=== PATIENT | male | born 1995 | race Caucasian/White ===

== ENCOUNTER 2021-03-04 06:31 | Emergency (ER) | payer BC, SELFPAY ==
[2021-03-04] VITALS (7 sets, daily range): BP systolic 116–172; BP diastolic 70–93; PULSE 68–88; RESP 16–18; TEMP 36.5–36.6; O2SAT 97–99; BMI 32.1
--- NOTE | 2021-03-04 06:43 | CT_ITS ---
PROCEDURE: CT ABDOMEN PELVIS W CON CLINICAL INDICATION: abd pain, vomiting blood COMPARISON: No exams were available for comparison TECHNIQUE: IV Contrast: 75ML Isovue 370 Oral Contrast None Axial images obtained with sagittal and coronal reformats. All CT scans at the facility use one or more dose reduction, viz: automated exposure control, ma/kV adjustment per patient size (including targeted exams where dose is matched to indication, i.e. head), or iterative reconstruction technique. FINDINGS: LOWER THORAX: No acute finding ABDOMEN & PELVIS: Liver, spleen adrenal glands, pancreas, and kidneys have an unremarkable appearance. No evidence of appendicitis. No intestinal obstruction or free air. There may be a few tiny stones in the fundus of the gallbladder as seen on image 42 series 3 incidental note made of aberrant course of the descending colon descending medially to the pericolic gutter anterior to the left kidney. No bowel wall thickening. There is thickening of the wall the stomach however the stomach is nondistended. There are few scattered small mesenteric lymph nodes. No acute bony findings. IMPRESSION: There is thickening of the wall the stomach however the stomach is nondistended. The thickening could be related to the incomplete distension. Gastritis is not excluded. Possible cholelithiasis. Otherwise negative Dictated by: Karlos Jorgensen MD 03/04/2021 07:55 Karlos Jorgensen MD in [facility] 03/04/2021 07:55
[2021-03-04 07:07] LABS: MANUAL DIFFERENTIAL MANUAL DIFFERENTIAL (MANUAL DIFF)
[2021-03-04 07:10] LABS: Basophils % 0.3 % (0.1-2.0); Eosinophils # 0.3 K/mm3 (0.0-0.4); Eosinophils % 1.7 % (0.1-12.0); Hematocrit 45.4 % (42.0-52.0); Hemoglobin 15.4 g/dL (14.1-18.0); Lymphocytes # 2.6 K/mm3 (0.7-4.5); Lymphocytes % 15.7 % (10-50); Mean Corpuscular HGB Conc 33.8 g/dL (31.8-35.4); Mean Corpuscular Hemoglobin 28.5 pg (27.0-31.2); Mean Corpuscular Volume 84.1 fl (80-94); Mean Platelet Volume 7.7 fl (7.4-10.4); Monocytes # 0.8 K/mm3 (0.1-1.0); Monocytes % 4.6 % (1.7-9.3); Neutrophils # 12.9 K/mm3 (1.8-7.8); Neutrophils % 77.8 % (37.0-80.0); Platelet Count 266 K/mm3 (142-424); Red Cell Distribution Width 12.9 % (11.5-17.5); White Blood Count 16.6 K/mm3 (4.8-10.8)
[2021-03-04 07:15] LABS: Chloride 103 mmol/L (98-107); Potassium 4.6 mmoL/L (3.5-5.1); Sodium 139 mmol/L (136-145)
[2021-03-04 07:18] LABS: Alanine Aminotransferase 33 U/L (12-78); Albumin Level 4.6 g/dl (3.5-5.0); Albumin/Globulin Ratio 1.7 (1.1-1.8); Alkaline Phosphatase 81 U/L (38-126); Anion Gap 9.6 mEq/L (5-15); Aspartate Amino Transferase 34 U/L (17-59); Bilirubin,Total 0.7 mg/dl (0.2-1.3); Blood Urea Nitrogen 21 mg/dl (9-20); Carbon Dioxide 31 mmol/L (22.0-30.0); Creatinine Clearance Estimated 184 mL/min (50-200); Estimated Glomerular Filt Rate 102 ml/min (>60); GFR (African American) 123 ML/MIN (>60); Globulin 2.7 g/dL (1.3-3.2); Total Protein,Serum 7.3 g/dl (6.3-8.2)
[2021-03-04 07:19] LABS: Calcium 9.2 mg/dl (8.4-10.2); Glucose 118 mg/dl (74-100)
[2021-03-04 07:24] LABS: C-Reactive Protein 13.1 mg/L (0-4)
[2021-03-04 07:24] LABS: Occult Blood,Gastric Fluid Positive (Negative)
--- NOTE | 2021-03-04 07:27 | XR_ITS ---
PROCEDURE: XR CHEST 2V CLINICAL HISTORY: productive cough COMPARISON: No exams were available for comparison FINDINGS: The cardiomediastinal silhouette and pulmonary vascularity are within normal limits. The lungs are clear without infiltrates, suspicious nodules, or pleural effusions. No acute bony abnormalities. IMPRESSION: No acute findings. Dictated by: Karlos Jorgensen MD 03/04/2021 09:07 Karlos Jorgensen MD in [facility] 03/04/2021 09:07
--- NOTE | 2021-03-04 07:33 | PC.NURSE ---
v/s delayed due to rad.
[2021-03-04 07:50] LABS: Erythrocyte Sedimentation Rate 12 mm/hr (0-15)
--- NOTE | 2021-03-04 07:53 | PC.NURSE ---
Pt returned from rad.
[2021-03-04 07:59] LABS: Lymphocytes % 15 % (10-50); Monocytes % 5 % (2-9); Neutrophils % 80 % (42-76); Platelet Estimate Normal; RBC Morphology Normal; Total Cells Counted 100
--- NOTE | 2021-03-04 08:08 | HMH.EDGENADL ---
ED Disposition Clinical Impression: Gastritis Qualifiers: Gastritis type: other gastritis Chronicity: acute Gastritis bleeding: with bleeding Qualified Code(s): K29.01 - Acute gastritis with bleeding Disposition: Home, Self-Care Condition on Discharge: Fair Instructions: Harris Diet, DI for Gastritis Additional Instructions: You have been evaluated for vomiting, diagnosed with gastritis. This is irritation in the lining of the stomach. Please avoid alcohol and nonsteroidal anti-inflammatory medications. Take Zofran for nausea. Carafate for throat pain. Omeprazole for reflux. Follow-up with a primary care doctor as soon as available, Saturday or Saturday. Follow-up with gastroenterology if needed. Prescriptions: Sucralfate [Carafate 1gm/10mL Susp] 1 gm PO ACHS #500 ml Transmission Status: Received by [id number] Omeprazole [Omeprazole 20mg Tab] 20 mg PO DAILY #30 tab Transmission Status: Received by [id number] ondansetron HCL [Ondansetron 4mg tab*] 4 mg PO Q6 PRN #15 tab PRN Reason: Vomiting Transmission Status: Received by [id number] Referrals: Tiny Dangelo APRN [Primary Care Provider] - Matt Foley MD [Staff Physician] - Time of Disposition: 09:51 - Critical Care Critical Care Time: No Attestation: On 03/04/21, the high probability of a clinically significant, sudden or life threatening deterioration of the following system(s) required my full and direct attention, intervention and personal management. The time I documented below is in addition to time spent performing reported procedures but includes the following listed in this critical care notation. Medical Decision Making - Medical Records Medical records reviewed: Yes: I reviewed the patient's medical records. - Isra Inquiry Pt receiving controlled substance: No Vital Signs: 03/04/21 06:45 03/04/21 07:53 03/04/21 08:15 Temperature 97.7 F Temperature Source Oral Pulse Rate 81 80 Pulse Rate [Right] 88 Respiratory Rate 18 Blood Pressure 118/73 116/70 Blood Pressure [Right Arm] 122/81 Blood Pressure Mean [Right Arm] 94 Blood Pressure Position 02 Sat by Pulse Oximetry 98 98 97 Oxygen Delivery Method Room Air Room Air 03/04/21 08:30 03/04/21 08:45 03/04/21 09:15 Temperature Temperature Source Pulse Rate 80 84 78 Pulse Rate [Right] Respiratory Rate Blood Pressure 134/75 146/75 H 140/93 H Blood Pressure [Right Arm] Blood Pressure Mean [Right Arm] Blood Pressure Position 02 Sat by Pulse Oximetry 99 97 98 Oxygen Delivery Method 03/04/21 10:55 Temperature 98 F Temperature Source Oral Pulse Rate 68 Pulse Rate [Right] Respiratory Rate 16 Blood Pressure 172/80 H Blood Pressure [Right Arm] Blood Pressure Mean [Right Arm] Blood Pressure Position Sitting 02 Sat by Pulse Oximetry Oxygen Delivery Method Room Air - Lab Data Lab Results 03/04/21 06:55: WBC 16.6 H, RBC 5.40, Hgb 15.4, Hct 45.4, MCV 84.1, MCH 28.5, MCHC 33.8, RDW 12.9, Plt Count 266, MPV 7.7, Neut % (Auto) 77.8, Lymph % (Auto) 15.7, [place] % (Auto) 4.6, Eos % (Auto) 1.7, Baso % (Auto) 0.3, Neut # (Auto) 12.9 H, Lymph # (Auto) 2.6, [place] # (Auto) 0.8, Eos # (Auto) 0.3, Baso # (Auto) 0.0, Total Counted 100, Neutrophils % (Manual) 80 H, Lymphocytes % (Manual) 15, Monocytes % (Manual) 5, Platelet Estimate Normal, RBC Morphology Normal 03/04/21 06:55: ESR 12 03/04/21 06:55: Sodium 139, Potassium 4.6, Chloride 103, Carbon Dioxide 31 H, Anion Gap 9.6, BUN 21 H, Creatinine 0.90, Estimated Creat Clear 184, Estimated GFR 102, Est GFR ( Amer) 123, Glucose 118 H, Calcium 9.2, Total Bilirubin 0.7, AST 34, ALT 33, Alkaline Phosphatase 81, C-Reactive Protein 13.1 H, Total Protein 7.3, Albumin 4.6, Globulin 2.7, Albumin/Globulin Ratio 1.7 03/04/21 06:55: Lipase 25 03/04/21 07:15: Gastric Occult Blood Positive Result diagrams: 03/04/21 06:55 03/04/21 06:55 Orders (Tests/Meds): ED MEDICATION
[2021-03-04 08:35] LABS: Lipase 25 U/L (23-300)
--- NOTE | 2021-03-04 08:56 | PC.NURSE ---
PT GIVEN PO CHALLENGE
--- NOTE | 2021-03-04 09:07 | PC.NURSE ---
surgery talent acquisition administrator paged.
--- NOTE | 2021-03-04 09:49 | PC.NURSE ---
Dr Caballero at bedside
== END 2021-03-04 10:57 | disposition home or self-care (01) ==
LOC: ER 06:40
PROVIDERS: Emergency Medicine; Emergency Provider Emergency Medicine; PCP Nurse Practitioner Family
DX: K29.01 Acute gastritis with bleeding (principal)
CPT/HCPCS: 71046; 74177; 80053; 82272; 83690; 85007; 85014; 85018; 85048; 85049; 85651; 86140; 96365; 96375; 99282; G0328; J2405; Q9967

== ENCOUNTER 2022-07-07 13:24 | Emergency (ER) | payer BC, SELFPAY ==
[2022-07-07 13:50] VITALS: BP 134/90; PULSE 74; RESP 19; TEMP 37.3; O2SAT 99; BMI 36.0
[2022-07-07 14:02] LABS: UTC Strep Screen (Rapid) Negative (Negative)
--- NOTE | 2022-07-07 14:05 | HMH.EDUTC ---
[facility] [place] Disposition Clinical Impression: Upper respiratory infection, viral Disposition: Home, Self-Care Condition on Discharge: Good Instructions: DI for Viral Upper Respiratory Infection -- Adult Additional Instructions: No sign of a bacterial infection. Likely viral. Viruses can take 7-14 days to run their course. Nasal saline and bulb syringe or nose Shelby to remove nasal drainage to help with nasal congestion. Hard to eat, drink, sleep with nasal congestion so important to keep this cleaned out. Monitor temp. Tylenol or Motrin as needed for pain or fever Encourage fluids, water, Gatorade, Powerade, Pedialyte if /toddler/child Warm salt water gargles Warm fluids Sore throat lozenges Sleep elevated Humidifier/vaporizer Follow-up immediately for new or worsening symptoms or no noticeable improvement over the next 48-72 hours. Referrals: Provider,Referral, MD [Primary Care Provider] - Time of Disposition: 14:10 Medical Decision Making - Isra Inquiry Pt receiving controlled substance: No Vital Signs: 07/07/22 13:50 Temperature 99.1 F Temperature Source Oral Pulse Rate [Right Brachial] 74 Respiratory Rate 19 Blood Pressure [Right Arm] 134/90 Blood Pressure Mean [Right Arm] 104 Blood Pressure Source [Right Arm] Automatic Cuff Blood Pressure Position [Right Arm] Sitting 02 Sat by Pulse Oximetry 99 Oxygen Delivery Method Room Air - Lab Data Lab Results 07/07/22 13:52: Strep Scn Rapid Clinic Negative Orders (Tests/Meds): ORDERS Category Date Time Status Strep Screen Confirmation Stat Micro 07/07/22 13:52 Received [facility] [place] HPI - General Chief complaint: Urgent [facility] Stated complaint: sore throat, sinus pressure Time Seen by Provider: 07/07/22 14:05 Mode of Arrival: Ambulatory Source of Information: Patient Limitations: No Limitations Description of Symptoms (Recalled from Triage Doc. by RN): PATIENT C/O SORE THROAT AND SINUS PRESSURE THAT STARTED YESTERDAY HEENT Symptoms (Recalled from RN notes): Yes Resp Symptoms (Recalled from RN notes): No Skin Symptoms (Recalled from RN notes): No MS Symptoms (Recalled from RN notes): No Functional Status (Recalled from RN notes): WNL - History of Present Illness Provider Complaint: 27 yr old male presnts for cough,sore throat and sinus pressure that started yesterday and covid test was neg - Related Data Previous Rx's Medication Instructions Recorded Omeprazole [Omeprazole 20mg Tab] 20 mg PO DAILY #30 tab 03/04/21 Sucralfate [Carafate 1gm/10mL 1 gm PO ACHS #500 ml 03/04/21 Susp] ondansetron HCL [Ondansetron 4mg 4 mg PO Q6 PRN #15 tab 03/04/21 tab*] Allergies Allergy/AdvReac Type Severity Reaction Status Date / Time No Known Allergies Allergy Verified 01/08/20 17:22 - Worker's Comp Is this a Worker's Comp case?: No [facility] History - Hepatitis A Screen Attestation statement:: This patient has been screened for Hepatitis A risk factors. I have reviewed the patient's past medical history: Yes Laterality Cases: Right: Other Amputation: No Fractures: No Comment: R ACL rx - Social History Smoking Status: Never smoker Alcohol Intake: current Alcohol Intake Frequency:: holidays/special occasions only Occupational Status: employed Family Hx:: Cancer, Diabetes, Hypertension ROS Obtained: Yes Systems reviewed as appropriate & no additional complaints - Constitutional Constitutional: Reports system reviewed and no additional complaints, except as docu, Denies fever(s) - Eyes Eyes: Reports system reviewed and no additional complaints, except as docu, Denies loss of vision - ENT Ears, Nose, Mouth, and Throat: Reports system reviewed and no additional complaints, except as docu, Reports nasal congestion, Reports sinus pain, Reports sinus pressure, Reports sore throat - Cardiovascular Cardiovascular: Reports system reviewed and no additional complaints, except as docu, Denies chest pain - Resp
[2022-07-07 14:10] VITALS: BP 134/90; PULSE 74; RESP 19; TEMP 37.3; O2SAT 99
== END 2022-07-07 14:13 | disposition home or self-care (01) ==
PROVIDERS: Emergency Provider Nurse Practitioner Family
DX: J06.9 Acute upper respiratory infection, unspecified (principal)
CPT/HCPCS: 87880; 99212; G0463

== ENCOUNTER 2022-10-05 09:14 | Emergency (ER) | payer BC, SELFPAY ==
[2022-10-05 09:40] LABS: UTC Influenza A Antigen Negative (Negative); UTC Influenza B Antigen Negative (Negative)
[2022-10-05 09:44] VITALS: BP 138/77; PULSE 105; RESP 16; TEMP 37.6; O2SAT 98; BMI 37.5
--- NOTE | 2022-10-05 09:45 | EXP.UTC ---
Discharge Plan Disposition Patient Disposition: Home, Self-Care Condition: Good Prescriptions Prescriptions: New azithromycin [Zithromax] 250 mg tablet 250 mg PO UD DOSE PK Qty: 6 0RF Rx Instructions: Take two (2) tablets today, then one (1) tablet days #2 thru #5 [id number] [Bromfed DM] 2-30-10 mg/5 mL Syrup 5 ml PO Q6H PRN (Reason: Cough) Qty: 240 0RF ondansetron 4 mg Tablet,Disintegrating 4 mg PO Q8H PRN (Reason: Nausea) Qty: 20 0RF No Action sucralfate 1 GM/10 ML suspension 1 gm PO ACHS Qty: 500 0RF omeprazole 20 MG tablet,delayed release (DR/EC) 20 mg PO DAILY Qty: 30 0RF ondansetron HCl 4 MG tablet 4 mg PO Q6 PRN (Reason: Vomiting) Qty: 15 0RF Referrals Follow up/Referrals: Provider,Referral, MD [Primary Care Provider] - See instructions Activity Restrictions/Add. Instructions Additional Instructions/Restrictions: Drink plenty of fluids. Take tylenol or ibuprofen for pain or fever. Take the medications as directed. Follow up with your regular doctor. GO TO THE ER FOR ANY WORSENING SYMPTOMS Clinical Impressions Clinical Impression: Viral syndrome, Bronchitis Stand Alone Forms Stand Alone Forms: Work/School Release Instructions Patient Instructions: DI for Acute Bronchitis, DI for Viral Syndrome Discharge ED Provider: Kai Akers [facility] General Stated complaint: chest congestion, migraine Time Seen by Provider: 10/05/22 09:25 History of Present Illness Provider Complaint: he states that for the past 2 days she has had sore throat, chills, body aches and low grade fever. Related Data Previous Rx's Medication Instructions Recorded omeprazole 20 mg tablet,delayed 20 mg PO DAILY #30 tabs 03/04/21 release ondansetron HCl 4 mg tablet 4 mg PO Q6 PRN Vomiting #15 tabs 03/04/21 sucralfate 100 mg/mL oral 1 gm PO ACHS #500 mL 03/04/21 suspension azithromycin 250 mg tablet 250 mg PO UD DOSE PK #6 tabs 10/05/22 (Zithromax) [id number]-[id number]-[id number] 5 ml PO Q6H PRN Cough #240 mL 10/05/22 2 mg-30 mg-10 mg/5 mL oral syrup (Bromfed DM) ondansetron 4 mg disintegrating 4 mg PO Q8H PRN Nausea #20 tabs 10/05/22 tablet Allergies Allergy/AdvReac Type Severity Reaction Status Date / Time No Known Allergies Allergy Verified 10/05/22 09:47 PFSH PFSH Social History Smoking Status: Never smoker alcohol intake: current current occupational status: employed Travel in the last 8 weeks: None ROS Obtained: Yes All systems reviewed & no additional complaints except as documented Constitutional Constitutional: Reports chills and Reports fever(s) Eyes Eyes: Denies eye discharge ENT Ears, Nose, Mouth, and Throat: Reports as per HPI Cardiovascular Cardiovascular: Denies chest pain Respiratory Respiratory: Denies chest congestion and Reports cough Gastrointestinal Gastrointestingal: Reports nausea; Denies abdominal pain, constipation, cramping, diarrhea or vomiting Musculoskeletal Musculoskeletal: Denies arthralgias Integumentary/Breasts Skin/Breast: Denies rash Neurologic Neurologic: Denies paresthesias Physical Exam General General appearance: alert and in no apparent distress Head Head exam: atraumatic, normocephalic and normal inspection Eye Eye exam: Present normal appearance, PERRL and EOMI ENT ENT exam: Present normal exam, normal oropharynx, mucous membranes moist, TM's normal bilaterally and normal external ear exam Neck Neck exam: Present normal inspection, full ROM and trachea midline; Absent meningismus or lymphadenopathy Chest Chest inspection: Present normal inspection and symmetric chest wall rise; Absent tenderness Respiratory Respiratory exam: Present normal lung sounds bilaterally; Absent respiratory distress Cardiovascular Cardiovascular exam: Present regular rate and normal rhythm; Absent JVD Abdominal Exam Abdominal exam: Pre
[2022-10-05 10:38] VITALS: BP 138/77; PULSE 105; RESP 16; TEMP 37.6
[2022-10-05 11:47] LABS: Adenovirus,PCR Not Detected (NotDetected); Bordetella Pertussis Not Detected (NotDetected); Chlamydophila Pneumoniae, PCR Not Detected (NotDetected); Coronavirus 19, PCR Not Detected (NotDetected); Coronavirus 229E Not Detected (NotDetected); Coronavirus NL63 Not Detected (NotDetected); Coronavirus OC43 Not Detected (NotDetected); Coronovirus HKU1,PCR Not Detected (NotDetected); Human Metapneumovirus Not Detected (NotDetected); Influenza A, PCR Not Detected (NotDetected); Influenza AH1, 2009 Not Detected (NotDetected); Influenza AH1, PCR Not Detected (NotDetected); Influenza AH3,PCR Not Detected (NotDetected); Influenza B, PCR Not Detected (NotDetected); Mycoplasma Pneumoniae, PCR Not Detected (NotDetected); Parainfluenza 1, PCR Not Detected (NotDetected); Parainfluenza 2, PCR Not Detected (NotDetected); Parainfluenza 3, PCR Not Detected (NotDetected); Parainfluenza 4, PCR Not Detected (NotDetected); Respiratory Syncytial Virus Not Detected (NotDetected); Rhinovirus/Enterovirus Not Detected (NotDetected)
== END 2022-10-05 10:41 | disposition home or self-care (01) ==
PROVIDERS: Emergency Provider Nurse Practitioner Family
DX: J40 Bronchitis, not specified as acute or chronic (principal)
CPT/HCPCS: 87581; 87632; 87798; 87804; 99212; C9803; G0463; U0003; U0005

== ENCOUNTER 2023-03-30 13:09 | Emergency (ER) | payer BC, SELFPAY ==
[2023-03-30 13:15] VITALS: BP 142/95; PULSE 80; RESP 20; TEMP 36.9; O2SAT 100; BMI 36.8
--- NOTE | 2023-03-30 13:24 | EXP.UTC ---
Discharge Plan Disposition Patient Disposition: Home, Self-Care Condition: Good Prescriptions Prescriptions: New amoxicillin-pot clavulanate 875-125 mg Tablet 1 tab PO Q12H Qty: 20 0RF ibuprofen 600 mg tablet 600 mg PO Q6HP PRN (Reason: Moderate Pain) Qty: 20 0RF Referrals Follow up/Referrals: Provider,Referral, [Primary Care Provider] - See instructions Activity Restrictions/Add. Instructions Additional Instructions/Restrictions: Use dental balls as directed Follow up with Dentist Call and try to get appointment Rinse mouth with warm salt water may help Return if needed Take prescribed medication as prescribed Clinical Impressions Clinical Impression: Dental infection Instructions Patient Instructions: Tooth Abscess, DI for Tooth Abscess, Ibuprofen Discharge ED Provider: Sonja Sam [facility] General Stated complaint: Possible broken tooth, fever, facial inflammation Mode of Arrival: Ambulatory Source of Information: Patient Limitations: No Limitations Time Seen by Provider: 03/30/23 13:25 Description of Symptoms (Recalled from Triage Doc. by RN): PATIENT C/O BROKEN TOOTH THAT HAS BEEN CAUSING PAIN FOR APPROX 1 WEEK, BUT PAIN WAS WORSE LAST NIGHT HEENT Symptoms (Recalled from RN notes): Yes Resp Symptoms (Recalled from RN notes): No Skin Symptoms (Recalled from RN notes): No MS Symptoms (Recalled from RN notes): No Functional Status (Recalled from RN notes): WNL History of Present Illness Provider Complaint: Patient states that he broke his back tooth on his right lower bottom teeth about a week ago and has been trying to get into a dentist States that last night he started having swelling and pain in the area and thinks it may be infected States that this morning he took a couple Motrin for the pain and came in to see if he could get something for the infection Related Data Previous Rx's Medication Instructions Recorded amoxicillin 875 mg-potassium 1 tab PO Q12H #20 tabs 03/30/23 clavulanate 125 mg tablet ibuprofen 600 mg tablet 600 mg PO Q6HP PRN Moderate Pain 03/30/23 #20 tabs Allergies Allergy/AdvReac Type Severity Reaction Status Date / Time No Known Allergies Allergy Verified 10/05/22 09:47 Worker's Comp Is this a Worker's Comp case?: No [facility] Disclaimer: The information contained in this section may have been updated after the patient was seen, as this information can be updated by other users. Social History Smoking Status: Never smoker alcohol intake: current current occupational status: employed Travel in the last 8 weeks: None ROS Obtained: Yes All systems reviewed & no additional complaints except as documented and Yes Systems reviewed as appropriate & no additional complaints except as documented Constitutional Constitutional: Reports system reviewed and no additional complaints, except as documented and Reports as per HPI ENT Ears, Nose, Mouth, and Throat: Reports system reviewed and no additional complaints, except as documented, Reports as per HPI and Reports dental pain Cardiovascular Cardiovascular: Reports system reviewed and no additional complaints, except as documented and Reports as per HPI Respiratory Respiratory: Reports system reviewed and no additional complaints, except as documented and Reports as per HPI Gastrointestinal Gastrointestingal: Reports system reviewed and no additional complaints, except as documented and as per HPI Physical Exam General General appearance: alert and in no apparent distress Expanded ENT Exam Open Mouth Image: 1. broken tooth with redness and swelling in gumline Teeth exam: Present dental caries, fractured tooth # and gingival swelling Chest Chest inspection: Present normal inspection and symmetric chest wall rise Respiratory Respiratory exam: Present normal lung sounds bilaterally; Absent respiratory distress or wheezes Cardiovascular Cardiova
[2023-03-30 13:32] VITALS: BP 142/95; PULSE 80; RESP 20; TEMP 36.9; O2SAT 100
== END 2023-03-30 13:34 | disposition home or self-care (01) ==
PROVIDERS: Emergency Provider Nurse Practitioner
DX: K04.7 Periapical abscess without sinus (principal); R50.9 Fever, unspecified; R22.0 Localized swelling, mass and lump, head
CPT/HCPCS: 99212; 99214; G0463